=== PATIENT | female | born 1975 | race Caucasian/White ===

== ENCOUNTER → 2019-03-07 16:33 | Outpatient (CLI) | payer OTHER, SELFPAY ==
[2019-03-07 18:04] LABS: Absolute Lymphocyte Count 2.03 X10^3/uL (0.83-4.51); Absolute Neutrophil Count 5.5 X10^3/uL (2.0-7.7); Basophil# 0.06 X10^3/uL; Basophil% 0.7 % (0-1); Eosinophils% 4.6 % (0-5); Hematocrit 34.9 % (37-47); Hemoglobin 11.3 g/dL (12.0-15.0); Lymphocyte # 2.03 X10^3/ul (4.0); Lymphocyte % 23.2 % (19-41); Mean Corp Hgb Conc 32.4 g/dL (32-36); Mean Corpuscular Hgb 30.5 pg (27.0-32.0); Mean Corpuscular Volume 94.3 fL (81-99); Mean Platelet Vol. 10.7 fl (6.2-12.0); NRBC Flagged by Analyzer 0 % (0-5); Neutrophil # 5.51 X10^3/uL (2.7-7.7); Platelet Count 366 K/mm3 (150-450); RBC Distribution Width CV 16.4 % (11.6-14.6); RBC Distribution Width SD 56.6 fl (35.1-43.9); White Blood Count 8.7 K/mm3 (4.4-11.0)
[2019-03-07 18:41] LABS: AST(SGOT) 14 U/L (15-37); Alanine Aminotransfer ALT/SGPT 19 U/L (13-56); Albumin, Serum 3.4 g/dL (3.2-5.0); Alkaline Phosphatase 58 U/L (45-117); Anion Gap 2 (5-15); BUN 10 mg/dL (7-18); BUN/Creat Ratio 15.1 RATIO (10-20); Calcium,Total 8.8 mg/dL (8.5-10.1); Chloride 111 mmol/L (98-107); Creatinine, Serum 0.66 mg/dL (0.55-1.02); EST Glomerular Filtration Rate 103 mL/min (>60); Est Glom Filt Rate - Afr Amer 125 mL/min (>60); Globulin 3.5 g/dL (2.2-4.2); Glucose 96 mg/dL (74-106); Potassium 4.5 mmol/L (3.5-5.1); Protein, Total 6.9 g/dL (6.4-8.2); Sodium Level 140 mmol/L (136-145)
== END ==
LOC: MTLAB 16:37
PROVIDERS: Family Provider Family Medicine; PCP Family Medicine; Referring Provider Family Medicine; Visit Provider Family Medicine
DX: R42 Dizziness and giddiness (principal)
CPT/HCPCS: 36415; 80053; 84443; 85025

== ENCOUNTER 2019-04-20 10:59 | Day surgery (SDC) | payer OTHER, SELFPAY ==
--- NOTE | 2019-04-19 17:04 | PCM.HP.BLA ---
History and Physical Date of Admission: 04/20/19 HPI: The patient is a 43 year old female presenting for pre-operative visit. She is scheduled for?hysteroscopy dilation curettage and polyp resection with Mirena IUD insertion, for?menorrhagia and endometrial polyp. ??Procedure discussed along with risks, benefits and complications. ?Other alternatives discussed for management. Consent form signed??Yes.? PAST MEDICAL HISTORY PAST MEDICAL HISTORY Diagnosis Date ? Chronic depressive personality disorder ? ? Dysplasia of cervix, unspecified ? ? history of LGSIL 12/25 ? Human papillomavirus in conditions classified elsewhere and of unspecified site ? ? Obesity, unspecified ? ? ? PAST SURGICAL HISTORY PAST SURGICAL HISTORY Procedure Laterality Date ? LIGATE FALLOPIAN TUBE ? ? ? REMOVAL GALLBLADDER ? ? ? REMOVE TONSILS/ADENOIDS,<12 Y/O ? CURRENT MEDICATIONS Current Outpatient Medications Medication Sig Dispense Refill ? tranexamic acid (LYSTEDA) 650 mg tablet Take 2 tablets by mouth three times daily as needed (heavy menstrual bleeding) for up to 5 days. 30 tablet 0 ? No current facility-administered medications for this visit.? ? ALLERGIES:?Codeine ? PERSONAL HISTORY:? SOCIAL HISTORY Social History ? Tobacco Use ? Smoking status: Current Every Day Smoker ? ? Packs/day: 1.00 ? ? Types: Cigarettes ? Smokeless tobacco: Never Used Substance Use Topics ? Alcohol use: Yes ? ? Comment: 6 BEERS EVERY WEEKEND-12 OZ EACH ? Drug use: No ? FAMILY HISTORY:? FAMILY HISTORY FAMILY HISTORY Problem Relation Age of Onset ? Breast Cancer Maternal Grandmother ? ? other (ms) Sister ? ? REVIEW OF SYMPTOMS: GENERAL: denies fevers or chills ENDOCRINOLOGY: has not been on steroids Cardiology : denies palpitations or chest pain Respiratory: denies SOB or cough Hematology: denies history of prolonged bleeding or easy bruising or VTE Allergy: Denies history of personal or family history of allergy to anesthesia ? ? PHYSICAL EXAMINATION: ? VITALS:?Blood pressure 128/68, weight 210 lb (95.3 kg), last menstrual period 03/02/2019. ? GENERAL:??The patient is well nourished, well hydrated in no acute distress. ?, The patient is oriented to time, place, and person. NECK:?Supple. No lynphadenopathy, normal thyroid, no thyromegaly. LUNGS:?Clear to auscultation bilaterally. no wheezes, rhonchi or rales HEART:?Regular rate and rhythm, Normal heart sounds and No murmurs or gallops GENITALIA:?Normal external genitalia, Urethral meatus normal, Bladder nontender, normal vagina and normal vaginal tone, normal cervix, normal uterus, size and consistency, normal adnexa without masses or tenderness and perineum WNL ? IMPRESSION:?menorrhagia, endometrial polyp ? PLAN:???The risks/benefits/alternatives and personal involved for the planned?hysteroscopy dilation and curettage and Mirena insertion?were reviewed with the patient. Her questions were answered to her satisfaction and she desires to proceed. ?Consent was signed. ?I reviewed with her postop instructions and expectations. ? ? I have reviewed and updated past medical and surgical history, medications and allergies? This H&P was completed in my office on 03/24/2019
[2019-04-20] VITALS (7 sets, daily range): BP systolic 104–144; BP diastolic 65–92; PULSE 78–113; RESP 16; TEMP 36.6–37.8; O2SAT 95–100; BMI 30.7
[2019-04-20] MEDS: Acetaminophen 500 MG Tablet 1000 MG PO (11:24)
[2019-04-20 11:25] LABS: Internal QC Validated? YES +Cl - CLEAR BKGD; Pregnancy, Urine Negative Negative
[2019-04-20] MEDS: Lactated Ringers 1,000 ML 100 ML IV (11:39)
[2019-04-20] MEDS: Ketorolac 30 MG/ML Syringe IV (11:49)
--- NOTE | 2019-04-20 12:30 | EMB_PTH ---
PATIENT: STACIA MAGANA LOC: [facility] [place] U#:[id number] AGE/SX: 43/F ROOM: RE04/20/[address]: Dr. Leidy Larson MD : 1975 BED: DIS: 04/20/2019 SPEC #: [id number] RECD: 04/20/19 15:35 STATUS: ARMAAN ANGLIN #: [id number] JEREL: 04/20/19 12:[address]: Leidy Larson DEPT: SURGICAL PATHOLOGY RECD BY: Rod Rodriguez ENTERED: 04/21/19 09:04 SP TYPE: ENDOM BX/C OTHR DR: Dr. 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 See comment. SYL:denia 04/27/19 COMMENT The specimen is sent to [facility] for expert opinion and reviewed by Dr. Colvin and above diagnosis is rendered. Dr. Colvin also made note that the endometrial curettings show both malignant glandular (serous/clear cell) and stromal elements consistent with carcinosarcoma. The cells are positive for PAX8 confirming M?llerian primary. The complete report is viewable in patient's EMR. MICROSCOPIC DESCRIPTION Slides are reviewed. GROSS DESCRIPTION Received in fixative is one container labeled with the patient's name and designated endometrial curettings. The specimen consists of multiple irregular fragments of reyes soft tissue that in aggregate measure 4 x 2 x 1.3 cm. The entire specimen is submitted in four cassettes. / SYL:denia 04/21/19 TC:0 CPT: 80301 ADDENDUM ADDENDUM ADDENDUM ADDENDUM ADDENDUM ADDENDUM ADDENDUM ADDENDUM ADDENDUM ADDENDUM 06/12/2019 09:56 ADDENDUM 06/12/2019 09:56 ADDENDUM 06/12/2019 09:56 ADDENDUM 06/12/2019 09:56 ADDENDUM 06/12/2019 09:56 This addendum is added to incorporate an outside pathology consultation report. The case was examined at [facility] (#[id number]) and the following diagnosis was rendered. Endometrium, curettage: Carcinosarcoma. Please see complete above mentioned consultation report in EMR
--- NOTE | 2019-04-20 13:19 | PCM.DC.D&C ---
Discharge Diet: No Restrictions Discharge Activity: Return to Normal Activity, May Shower, May Take a Tub Bath - in 2 weeks. Return to work on:: 04/22/19 May resume sexual activity in: 2 weeks Call your doctor if your incision/area has: Sudden Increased Bleeding, Foul Smelling Discharge Call your doctor if you observe: Fever of 101 or Higher, Using more than one pad per hour - for 2 hrs in a row Allergies/Adverse Reactions: Allergies codeine Allergy (Verified 04/13/19 09:21) Upset Stomach Medications to take at Discharge Multivitamin [Daily Multiple Vitamin] 1 ea PO DAILY 04/13/19 Ibuprofen [Motrin] 600 mg PO Q6H PRN #60 tab 04/20/19 The following prescriptions were given: Ibuprofen [Motrin] 600 mg PO Q6H PRN #60 tab PRN Reason: Pain Transmission Status: Pending to [facility] [place] Orders to be completed after discharge: CBC-Complete Blood Cnt No Diff Time Frame: 04/20/19, Facility: [facility], Location: Laboratory Primary Care Physician: Oj Mariano MD [Primary Care Provider] - Test Results: Test results from this visit will be discussed in further detail at your follow-up appointment, if applicable. Please Follow Up With: -Leidy Larson MD - [phone] When: 6-8 weeks or as needed
--- NOTE | 2019-04-20 13:45 | OP.PCM_ITS ---
Report of Operation Date of Procedure: 04/20/19 Pre-Operative Diagnosis: menorrhagia, endometrial polyp Post-Operative Diagnosis: same Surgery/Procedure Performed:: Hysteroscopy visual D&C with Symphion and Mirena IUD insertion Description of Surgical Findings:: lush polypoid appearing endometrium, normal cervix and vagina telephone lines repairer: None Type of Anesthesia:: MAC/Supplemental/Local Special Medications: none Specimen's removed: endometrial curettings Drains: none Estimated Blood Loss (mL): 10 Fluids Replaced: 900 Description of Procedure: The patient was taken to the OR where she was prepped and draped in dorsal lithotomy position. The weighted speculum was placed in the vagina and the anterior lip of the cervix was grasped with a single-tooth tenaculum. A paracervical block was administered with [1% lidocaine with 1-100,000 ep inephrine solution]. The cervix was dilated serially with Hegar dilators. The Symphion hysteroscope was placed into the uterine cavity and the above findings were noted. Bilateral tubal ostia [were] identified. The Symphion resectiondevice was readied and inserted. Resection of the polypoid appearing tissue and a visual dilation and curettage was performed with the device. The cavity was cleared and normal in appearance, the resection was stopped. The Mirena intrauterine system was inserted in the usual sterile fashion and the uterus sounded to 8 cm. The strings were cut at 2 cm. The instruments were removed from the vagina. The specimen was handed off and sent to pathology. All sponge and needle counts were correct. Vaginal sweep was performed by me. The patient was awakened and taken to the recovery room in stable condition. Calculated hysteroscopic fluid deficit was 350 cc normal saline. Grafts/Implants Used: Mirena IUD [id number] Exp 05/23/2021 - Complications none - Admit VTE Documentation VTE Present on Admission: No VTE Mechan Device Prophylaxis: SCD's VTE Pharm Prophylaxis ordered?: No Reason prophylaxis not ordered:: Procedure Not Indicated
--- NOTE | 2019-04-20 15:29 | SUR.PHASEII ---
DR. ARRIAZA CALLED WITH UPDATE OF PT BEFORE DISCHARGED.
== END 2019-04-20 15:36 | disposition home or self-care (01) ==
LOC: SDC 11:00 → AC 11:02
PROVIDERS: PCP Family Medicine; Referring Provider Obstetrics & Gynecology; Visit Provider Obstetrics & Gynecology
PROC: 0UB98ZZ Excision of Uterus, Via Natural or Artificial Opening Endoscopic (ICD-10-PCS; CPT 58558; principal; 2019-04-20 12:15)
DX: C54.1 Malignant neoplasm of endometrium (principal); N92.0 Excessive and frequent menstruation with regular cycle; F34.1 Dysthymic disorder; E66.9 Obesity, unspecified; F17.210 Nicotine dependence, cigarettes, uncomplicated; Z88.5 Allergy status to narcotic agent; Z68.30 Body mass index [BMI] 30.0-30.9, adult
CPT/HCPCS: 58300; 58558; 81025; 88305; J7120; J2405

== ENCOUNTER → 2020-11-18 14:45 | Outpatient (CLI) | payer OTHER, SELFPAY ==
--- NOTE | 2020-11-18 14:49 | VDLE_ITS ---
Reason For Study: LLE pain RIGHT LEFT CFV is compressible, spontaneous, phasic, GSV is normal. competent and demonstrates normal CFV is compressible, spontaneous, phasic, augmentation. competent, and demonstrates normal Procedure augmentation. Exam performed in department. FV is compressible, spontaneous, phasic, The exam was diagnostic. competent and demonstrates normal A preliminary report was called and/or faxed augmentation. to Lay Macdonald [facility] @ 3:10 pm. POP V is compressible, spontaneous, phasic, competent and demonstrates normal augmentation. T/P Trunk is compressible. PTV is compressible. LT PerV is compressible. VL/Venous Duplex US, Unilateral Interpretation Summary Deep veins of the left lower extremity are patent and compressible segmentally. There is no evidence of left lower extremity deep vein thrombosis. Valvular competence appears intac t within the proximal deep venous system on the left . The left great saphenous vein appears patent a nd compressible segmentally. Ordering Physician: Lay Macdonald Referring Physician: Oj Mariano Performed By: Kassidy Kenney, RDCS, RVT
== END ==
PROVIDERS: PCP Family Medicine; Referring Provider Nurse Practitioner Family; Visit Provider Nurse Practitioner Family
DX: M79.605 Pain in left leg (principal)
CPT/HCPCS: 93971

== ENCOUNTER → 2020-12-14 07:58 | Outpatient (CLI) | payer OTHER, SELFPAY ==
--- NOTE | 2020-12-14 08:00 | MRI_ITS ---
STUDY: MRI LEFT KNEE REASON FOR EXAM: Female, 45 years old. Pain and swelling. TECHNIQUE: Standardized fat and water weighted pulse sequences were obtained in all 3 orthogonal planes. COMPARISON: None. FINDINGS: There is a focal osteochondral defect in the posterior medial femoral condyle with extensive surrounding edema. Focal mild edema is also noted in the lateral femoral condyle. There is tearing in the posterior horn of the medial meniscus. There is low grade hyaline cartilage defects of the medial femorotibial compartment. Normal medial collateral ligamentous complex (MCL). Normal distal semimembranosus, gracilis and semitendinosus tendons. Normal lateral meniscus. There is low grade hyaline cartilage defects of the medial femorotibial compartment. Normal proximal tibiofibular articulation. Normal lateral collateral (fibular) ligament. Normal popliteus tendon. Normal biceps femoris tendon. Normal anterior cruciate ligament (ACL). Normal posterior cruciate ligament (PCL). Normal congruent patellofemoral articulation. There is a focal high grade cartilage defect in the hyaline cartilage of the patellofemoral compartment in the lateral femur. Normal medial and lateral patellar retinaculum. Normal quadriceps tendon. Normal patellar tendon. Normal Hoffa''s fat pad. There is a moderate joint effusion. The soft tissues are unremarkable. The otherwise visualized osseous structures are unremarkable. MRI/Lower Ext Joint Only (Routine) IMPRESSION: There is a focal osteochondral defect in the posterior medial femoral condyle with extensive surrounding edema. Focal mild edema is also noted in the lateral femoral condyle. There is tearing in the posterior horn of the medial meniscus. Cartilage degeneration. Join effusion. Electronically Signed: Ifeanyi Copeland MD at 9:56 EDT Tel , Service support ,
== END ==
PROVIDERS: PCP Family Medicine; Referring Provider Physician Assistant; Visit Provider Physician Assistant
DX: M25.462 Effusion, left knee (principal); M23.92 Unspecified internal derangement of left knee
CPT/HCPCS: 73721

== ENCOUNTER 2021-03-07 11:52 | Outpatient (CLI) | payer OTHER, SELFPAY ==
[2021-03-07 12:18] LABS: Anion Gap 4 (5-15); BUN 7 mg/dL (7-18); BUN/Creat Ratio 8.8 RATIO (10-20); Calcium,Total 9.1 mg/dL (8.5-10.1); Chloride 110 mmol/L (98-107); Cholesterol 225 mg/dL (200); Creatinine, Serum 0.79 mg/dL (0.55-1.02); EST Glomerular Filtration Rate 83 mL/min (>60); Est Glom Filt Rate - Afr Amer 100 mL/min (>60); Glucose 115 mg/dL (74-106); High Density Lipoprotein 56 mg/dL; Potassium 3.9 mmol/L (3.5-5.1); Sodium Level 141 mmol/L (136-145); Triglycerides 89 mg/dL; Very Low Density Lipoprotein 18 mg/dL (5-40)
[2021-03-07 12:23] LABS: Hematocrit 40.3 % (37-47); Mean Corp Hgb Conc 34.7 g/dL (32-36); Mean Corpuscular Hgb 34.7 pg (27.0-32.0); Mean Platelet Vol. 9.7 fl (6.2-12.0); Platelet Count 312 K/mm3 (150-450); RBC Distribution Width CV 12.7 % (11.6-14.6); RBC Distribution Width SD 47.6 fl (35.1-43.9); Red Blood Count 4.03 M/mm3 (4.2-5.4); White Blood Count 6.4 K/mm3 (4.4-11.0)
== END 2021-03-07 23:59 | disposition short-term general hospital (02) ==
LOC: LABSPEC 11:53
PROVIDERS: PCP Family Medicine; Visit Provider Nurse Practitioner Family
DX: Z00.00 Encounter for general adult medical examination without abnormal findings (principal); Z13.1 Encounter for screening for diabetes mellitus; Z13.220 Encounter for screening for lipoid disorders
CPT/HCPCS: 80048; 80061; 85027

== ENCOUNTER 2021-03-18 11:09 | Outpatient (CLI) | payer OTHER, SELFPAY ==
--- NOTE | 2021-03-18 11:15 | MRI_ITS ---
STUDY: MRI LEFT KNEE REASON FOR EXAM: Left knee pain. TECHNIQUE: Standardized fat and water weighted pulse sequences were obtained in all 3 orthogonal planes. COMPARISON: MRI images 04/16/2020, radiographs 02/07/2021. FINDINGS: There is mild intrasubstance myxoid degeneration of the posterior horn of the medial meniscus without discrete medial meniscal tear. Normal hyaline cartilage of the medial femorotibial compartment. There is interval decrease in the size of the subchondral stress fracture of the medial femoral condyle (proton-density sagittal image 16; proton-density coronal image 14) with decreased bone edema (T2 coronal images 14-16). Normal medial collateral ligamentous complex (MCL). Normal distal semimembranosus, gracilis and semitendinosus tendons. Normal lateral meniscus. Normal hyaline cartilage of the lateral femorotibial compartment. There is almost complete resolution of the subchondral bone edema of the lateral femoral condyle since the prior study. Normal proximal tibiofibular articulation. Normal lateral collateral (fibular) ligament. Normal popliteus tendon. Normal biceps femoris tendon. Normal anterior cruciate ligament (ACL). Normal posterior cruciate ligament (PCL). Normal congruent patellofemoral articulation. There is intermediate grade chondromalacia of the lateral patellar facet (T2 axial image 8) and high-grade chondromalacia of the lateral femoral trochlea (T2 sagittal image 15). Normal medial and lateral patellar retinaculum. Normal visualized quadriceps tendon. Normal patellar tendon. Normal Hoffa''s fat pad. There is a very small joint effusion. The soft tissues are unremarkable. The otherwise visualized osseous structures are unremarkable. MRI/Lower Ext Joint Only (Routine) IMPRESSION: Interval decrease in size of the subchondral stress fracture of the medial femoral condyle with decreased bone edema. Chondromalacia of the patellofemoral compartment. Very small joint effusion. Electronically Signed: Cosme Brito MD at 13:31 EST ,
== END 2021-03-18 23:59 | disposition short-term general hospital (02) ==
PROVIDERS: Referring Provider Orthopaedic Surgery; Visit Provider Orthopaedic Surgery
DX: M87.9 Osteonecrosis, unspecified (principal); M22.42 Chondromalacia patellae, left knee; M25.462 Effusion, left knee
CPT/HCPCS: 73721

== ENCOUNTER → 2022-01-05 | Outpatient (CLI) | payer OTHER, SELFPAY ==
[2022-01-05 18:16] LABS: Hematocrit 42.5 % (37-47); Hemoglobin 14.4 g/dL (12.0-15.0); Mean Corp Hgb Conc 33.9 g/dL (32-36); Mean Corpuscular Hgb 33.6 pg (27.0-32.0); Mean Corpuscular Volume 99.3 fL (81-99); Platelet Count 275 K/mm3 (150-450); RBC Distribution Width CV 13.1 % (11.6-14.6); RBC Distribution Width SD 47.7 fl (35.1-43.9); Red Blood Count 4.28 M/mm3 (4.2-5.4); White Blood Count 5.6 K/mm3 (4.4-11.0)
[2022-01-05 18:40] LABS: Vitamin B12 396 pg/mL (211-911); Vitamin D,25 Hydroxy 30.8 ng/mL
[2022-01-05 18:41] LABS: Anion Gap 8 (5-15); BUN 9 mg/dL (7-18); BUN/Creat Ratio 11.9 RATIO (10-20); Calcium,Total 9.1 mg/dL (8.5-10.1); Chloride 107 mmol/L (98-107); Creatinine, Serum 0.76 mg/dL (0.55-1.02); EST Glomerular Filtration Rate 87 mL/min (>60); Est Glom Filt Rate - Afr Amer 105 mL/min (>60); Glucose 103 mg/dL (74-106); Sodium Level 141 mmol/L (136-145); Thyroid Stim Hormone (TSH) 1.14 uIU/mL (0.358-3.74)
== END | disposition home or self-care (01) ==
PROVIDERS: PCP Family Medicine; Referring Provider Nurse Practitioner Family; Visit Provider Nurse Practitioner Family
DX: Z00.00 Encounter for general adult medical examination without abnormal findings (principal); R53.83 Other fatigue
CPT/HCPCS: 36415; 80048; 82306; 82607; 84443; 85027

== ENCOUNTER → 2022-01-21 | Outpatient (CLI) | payer OTHER, SELFPAY ==
--- NOTE | 2022-01-21 12:28 | BI_ITS ---
MAMMOGRAPHY - BILATERAL SCREENING REASON FOR EXAM: Female, 46 years old. Routine annual screening examination. PERTINENT HISTORY: Grandmother with breast cancer. TECHNIQUE: Digital bilateral breast amena (3D mammographic acquisition) in the CC and MLO projections. 2-D mediolateral oblique (MLO) and craniocaudad (CC) views of both breasts were obtained. CAD: Full Field Digital Mammography with Computer Added Detection was performed. COMPARISON: Comparison is made with prior outside examination dated 09/15/2020. FINDINGS: Breast Composition: The breasts are almost entirely fatty. There are no dominant masses or suspicious calcifications. The port from a sen catheter is seen in the right axillary region. Stable small benign-appearing bilateral axillary lymph nodes. No other significant abnormalities are identified. There has been no significant change since the prior study. BI/SCRN MAMM (CAD)W/AMENA BILAT IMPRESSION: Stable bilateral screening mammogram. Yearly follow-up mammogram recommended. (A) ASSESSMENT CATEGORY: BIRADS Category 2: Benign. A letter regarding these results will be sent to the patient by the facility within 30 days. Approximately 10% of breast cancers are not detected by mammography. A normal mammogram should not delay biopsy of a clinically suspicious abnormality. [id number] Electronically Signed: Jonatan Devi MD at 13:39 EST ,
== END | disposition home or self-care (01) ==
LOC: OPBI 12:27
PROVIDERS: PCP Family Medicine; Visit Provider Nurse Practitioner Family
DX: Z12.31 Encounter for screening mammogram for malignant neoplasm of breast (principal); Z80.3 Family history of malignant neoplasm of breast
CPT/HCPCS: 77063; 77067

== ENCOUNTER → 2022-12-30 | Outpatient (CLI) | payer OTHER, SELFPAY ==
[2022-12-30 17:56] LABS: Absolute Lymphocyte Count 1.87 X10^3/uL (0.83-4.51); Absolute Neutrophil Count 5.7 X10^3/uL (2.0-7.7); Basophil# 0.05 X10^3/uL; Basophil% 0.6 % (0-1); Eosinophil# 0.17 X10^3/uL; Hematocrit 43.4 % (37-47); Hemoglobin 14.5 g/dL (12.0-15.0); Lymphocyte # 1.87 X10^3/ul (0.83-4.51); Mean Corp Hgb Conc 33.4 g/dL (32-36); Mean Corpuscular Hgb 32.7 pg (27.0-32.0); Mean Corpuscular Volume 97.7 fL (81-99); Mean Platelet Vol. 10.1 fl (6.2-12.0); Monocyte# 0.73 X10^3/uL; Monocyte% 8.6 % (0-10); NRBC Flagged by Analyzer 0 % (0-5); Neutrophil # 5.65 X10^3/uL (2.7-7.7); Neutrophil % 66.4 % (47-70); Platelet Count 327 K/mm3 (150-450); RBC Distribution Width CV 13.2 % (11.6-14.6); RBC Distribution Width SD 47.2 fl (35.1-43.9); Red Blood Count 4.44 M/mm3 (4.2-5.4); White Blood Count 8.5 K/mm3 (4.4-11.0)
[2022-12-30 18:13] LABS: Vitamin D,25 Hydroxy 35.3 ng/mL
[2022-12-30 18:14] LABS: Hemoglobin A1c 5.9 % (3.8-5.6)
[2022-12-30 18:36] LABS: ALB/GLOB Ratio 0.8 RATIO (0.9-2.4); AST(SGOT) 13 U/L (15-37); Alanine Aminotransfer ALT/SGPT 25 U/L (13-56); Albumin, Serum 3.5 g/dL (3.2-5.0); Alkaline Phosphatase 90 U/L (45-117); Anion Gap 7 (5-15); BUN 9 mg/dL (7-18); BUN/Creat Ratio 11.5 RATIO (10-20); Calcium,Total 9.4 mg/dL (8.5-10.1); Chloride 109 mmol/L (98-107); Creatinine, Serum 0.78 mg/dL (0.55-1.02); EST Glomerular Filtration Rate 83 mL/min (>60); Est Glom Filt Rate - Afr Amer 100 mL/min (>60); Globulin 4.2 g/dL (2.2-4.2); Glucose 100 mg/dL (74-106); Protein, Total 7.7 g/dL (6.4-8.2); Sodium Level 140 mmol/L (136-145); Thyroid Stim Hormone (TSH) 2.16 uIU/mL (0.358-3.74)
== END | disposition home or self-care (01) ==
LOC: MFPLAB 16:38
PROVIDERS: PCP Family Medicine; Visit Provider Family Medicine
DX: R10.9 Unspecified abdominal pain (principal); R73.9 Hyperglycemia, unspecified
CPT/HCPCS: 36415; 80053; 82306; 83036; 84443; 85025

== ENCOUNTER → 2024-11-24 | Outpatient (CLI) | payer OTHER, SELFPAY ==
--- NOTE | 2024-11-24 10:10 | RAD_ITS ---
PROCEDURE: FOOT MIN 3 VIEWS 11/24/2024 REASON FOR EXAM: PAIN, INJURY TECHNIQUE: Procedure Code: RADFO Modality: DX Procedure: FOOT MIN 3 VIEWS Laterality: Left foot COMPARISON: None FINDINGS: Bones: No visible fracture. No suspicious bone lesion. Bipartite tibial sesamoid bone. This is a normal anatomical variant. Small calcaneal plantar spur. Joints: Normal alignment. Soft tissues: Soft tissues are unremarkable. Other: RAD/Foot min 3 Views IMPRESSION: NO ACUTE FRACTURE OR DISLOCATION. Reading Location: [id number]
== END | disposition home or self-care (01) ==
LOC: MTRAD 10:09
PROVIDERS: PCP Family Medicine; Referring Provider Family Medicine; Visit Provider Family Medicine
DX: S99.922A Unspecified injury of left foot, initial encounter (principal)
CPT/HCPCS: 73630

== ENCOUNTER → 2025-01-03 | Outpatient (CLI) | payer BC, OTHER, SELFPAY ==
[2025-01-03 10:20] LABS: Hematocrit 42.4 % (37-47); Hemoglobin 14.3 g/dL (12.0-15.0); Immature Granulocytes Count 0.030 X10^3/uL (0.0-0.0); Mean Corp Hgb Conc 33.7 g/dL (32-36); Mean Corpuscular Volume 94.6 fL (81-99); Mean Platelet Vol. 9.9 fl (6.2-12.0); NRBC Flagged by Analyzer 0 % (0-5); Platelet Count 291 K/mm3 (150-450); RBC Distribution Width CV 13.4 % (11.6-14.6); RBC Distribution Width SD 46.9 fl (35.1-43.9); Red Blood Count 4.48 M/mm3 (4.2-5.4); White Blood Count 7.0 K/mm3 (4.4-11.0)
[2025-01-03 10:55] LABS: AST(SGOT) 14 U/L (<=31); Alanine Aminotransfer ALT/SGPT 15 U/L (<=34); Albumin, Serum 4.2 g/dL (3.5-5.0); Alkaline Phosphatase 79 U/L (35-104); Anion Gap 12 (5-15); BUN 10 mg/dL (4-19); BUN/Creat Ratio 15.2 RATIO (10-20); Calcium,Total 9.2 mg/dL (7.6-11.0); Carbon Dioxide 21.4 mmol/L (21.0-32.0); Chloride 107 mmol/L (98-108); Cholesterol 235 mg/dL (<=200); Globulin 2.8 g/dL (2.2-4.2); Glucose 120 mg/dL (70-99); Low Density Lipoprotein Calc. 163 mg/dL; Potassium 4.2 mmol/L (3.3-5.1); Triglycerides 150 mg/dL; Very Low Density Lipoprotein 30 mg/dL (5-40); Vitamin D,25 Hydroxy 18.0 ng/mL (30-100); cholesterol:hdl ratio screen 5.30
== END | disposition home or self-care (01) ==
LOC: MTLAB 09:03
PROVIDERS: PCP Family Medicine; Referring Provider Family Medicine; Visit Provider Family Medicine
DX: I10 Essential (primary) hypertension (principal)
CPT/HCPCS: 36415; 80053; 80061; 82306; 83036; 84443; 85025